=== PATIENT | male | born 1985 | race Caucasian/White ===

== ENCOUNTER 2023-12-20 09:48 | Outpatient (CLI) | payer OTHER, SELFPAY ==
--- NOTE | 2024-01-25 10:15 | W.PM.SLEEP ---
Sleep Study Details Details Interpreting Provider: Aliyah Date of Sleep Study: 12/20/23 Sleep Study Details: STUDY TYPE:? Home unattended ? BMI:? Not recorded ORDERING PROVIDER:? Aliyah INDICATION:? Concern about sleep apnea ? SLEEP SUMMARY:? 481 minutes monitored RESPIRATORY SUMMARY:? AHI 13.2 Low oxygen 83 17% of study oxygen less than 90% 94.3% of study snoring PERIODIC LIMB MOVEMENTS OF SLEEP:? Not recorded CARDIAC:? Range 50-120, mean 72.7 IMPRESSION:? Mild obstructive sleep apnea with significant hypo oxygenation RECOMMENDATION: Treatment options include CPAP dental appliance and/or airway expansion surgery.
== END 2023-12-20 09:49 | disposition home or self-care (01) ==
LOC: SLEEP 09:49
PROVIDERS: Visit Provider Otolaryngology
DX: G47.33 Obstructive sleep apnea (adult) (pediatric) (principal)
CPT/HCPCS: 95806

== ENCOUNTER 2024-06-02 10:52 | Day surgery (SDC) | payer OTHER, SELFPAY ==
[2024-06-02] VITALS (13 sets, daily range): BP systolic 115–131; BP diastolic 78–91; PULSE 71–101; RESP 12–16; TEMP 36–36.4; O2SAT 91–96; BMI 28.4
--- NOTE | 2024-06-02 09:56 | W.ANESCHARGE ---
Anesthesia Charges Start Date/Time Anesthesia Start Date: 06/02/24 Anesthesia Start Time: 12:33 Stop Date/Time Anesthesia Stop Date: 06/02/24 Anesthesia Stop Time: 13:21
[2024-06-02] MEDS: OXYMETAZOLINE 0.05% NASAL SPRAY 2 SPRAY NOSTRIL-B (11:19)
[2024-06-02] MEDS: SODIUM CHLORIDE 0.9 % (FLUSH) 10 ML SYRINGE IVF ×2 (11:35→13:59)
[2024-06-02] MEDS: 0.9 % SODIUM CHLORIDE 500 ML 500 ML 35 ML IV (12:07)
[2024-06-02] MEDS: BUPIVACAINE 0.5%/EPINEPHRINE 0.9 MG (30.9 ML) INJECTION (12:45)
[2024-06-02] MEDS: COCAINE HCL 4 % 4 ML SOLUTION NOSTRIL-B (12:45)
[2024-06-02] MEDS: MUPIROCIN 1 GM PACKET 1 APPLIC TOPICAL (12:49)
[2024-06-02] MEDS: AYR SALINE NASAL GEL 1 APPLIC NOSTRIL-B (12:49)
--- NOTE | 2024-06-02 13:05 | W.PM.ENTPROC ---
Procedure Note Date of procedure: 06/02/24 Procedure: Preop diagnosis deviated septum nasal obstruction bilateral inferior turbinate hypertrophy Postoperative diagnosis same Procedure nasal septoplasty, submucous partial resection inferior turbinates bilateral Under general trach anesthesia patient was prepped draped usual fashion. The nose was decongested and injected. A right hemitransfixion incision was made and left anterior tunnel created exposing the obstruction at the left valve region. I was able to shave a thin layer of cartilage from this effectively opening up the left nasal valve area 2. The hemitransfixion was closed with 2 4-0 chromic sutures and stents secured with 3-0 nylon. A stab incision was made in the anterior of the right inferior turbinate a tunnel created with a Cherry dissector. The socrates bone was outfractured and then a conservative anterior submucous resection performed. The cautery was used to cauterize intramurally along the inferior 10%. This was repeated on the left side in identical fashion. Merocel packing was placed above the stents on each side to maintain position and the nasal valve region. Blood loss 20 mL Surgeon: Ignacio Ly MD
[2024-06-02] MEDS: ACETAMINOPHEN 325 MG TABLET PO (13:58)
[2024-06-02] MEDS: IBUPROFEN 200 MG TABLET PO (13:58)
[2024-06-02] MEDS: fentaNYL 100 MCG/2 ML inj 50 MCG IVP (13:59)
[2024-06-02] MEDS: HYDROmorphone 0.5 mg/0.5 ml inj IVP (14:39)
--- NOTE | 2024-06-02 14:56 | W.ANESCHARGE ---
Anesthesia Charges Start Date/Time Anesthesia Start Date: 06/02/24 Anesthesia Start Time: 12:33 Stop Date/Time Anesthesia Stop Date: 06/02/24 Anesthesia Stop Time: 13:21
[2024-06-02] MEDS: OXYCODONE 5 MG TABLET PO (15:11)
== END 2024-06-02 16:10 | disposition home or self-care (01) ==
LOC: OR 10:53
PROVIDERS: Visit Provider Otolaryngology
PROC: (CPT 30520; principal; 2024-06-02 12:00)
DX: J34.2 Deviated nasal septum (principal); J34.3 Hypertrophy of nasal turbinates; J34.89 Other specified disorders of nose and nasal sinuses
CPT/HCPCS: 30520; 30140; 00160; A9270; J0330; J1100; J1171; J2250; J2405; J2704; J3010; J3490; J7030